=== PATIENT | female | born 1945 | race Caucasian/White ===

== ENCOUNTER 2017-02-16 21:06 | Inpatient (IN) | payer OTHER, MEDICAID, MEDICARE ==
--- NOTE | 2017-02-16 22:26 | ED Physician Chart ---
Chief Complaint/HPI - Patient Information Date Seen:: 02/16/17 Time Seen:: 21:14 Chief Complaint:: Confusion with intermittent agitation for 2 days. History of Present Illness:: Brought in by her significant other Mr. Jerald Galeana for the above reason. Pt has h/o bipolar disorder. Pt reportedly had increased dosage of Wellbutrin and addition of another medication Saphirs recently. Pt does not appear to be in distress. She has flight of ideas and does not follow questions or instructions. H & P are limited because pt is uncooperative. Pt denies any pain or discomfort. Allergies:: Allergies Allergy/AdvReac Type Severity Reaction Status Date / Time clozapine [From Clozaril] Allergy Verified 02/16/17 21:30 risperidone [From Risperdal] Allergy Verified 02/16/17 21:30 Vitals:: Vital Signs - 8 hr 02/16/17 21:15 Temp 98.1 F HR 74 RR 20 BP 115/84 O2 Sat % 97 Historian:: Patient Family MD/PCP:: Dr. العلي LMP:: Postmenopausal Review:: Nurse's Note Reviewed Review of Systems - Review of Systems General/Constitutional: Other (Pt does not cooperate for ROS) Past Medical History - Past Medical History Past Medical History: HTN, Thyroid disorder Family History: Other (Pt does not cooperate to provide info on FHx.) Social History: Non Smoker, No Alcohol, No Drug Use, , Other (lives with her significant others.) Employment:: Retired. Surgical History: other (pt does not cooperate to provide info on Surgical Hx.) Psychiatricy History: Bipolar Medication: Reviewed Family Medical History - Family Member Mother History Unknown: Yes Ethnicity: Unknown Living Status: Unknown Hx Family Cancer: (unknown) Hx Family Coronary Artery Disease: (unknown) Hx Family Congestive Heart Failure: (unknown) Hx Family Hypertension: (unknown) Hx Family Stroke: (unknown) Hx Family Diabetes: (unknown) Hx Family Seizures: (unknown) Hx Family Dementia: (unknown) Hx Family AIDS: (unknown) Hx Family HIV: No Hx Family COPD: (unknown) Hx Family Hepatitis: (unknown) Hx Family Psychiatric Problems: (unknown) Hx Family Tuberculosis: (unknown) Physical Exam - Physical Examination General/Constitutional: Awake, Well-developed, well-nourished, Alert, No distress, Non-toxic appearing, Ambulatory Other Gen/Cons comments:: Breathes comfortably, speaks clearly with flight of ideas, ambulates without assistance without difficulty. Head: Atraumatic Eyes: Lids, conjuctiva normal, PERRL, EOMI Skin: No ecchymosis, Well hydrated, No lymphadenopathy ENMT: External ears, nose nl, Nasal exam nl, Oropharynx nl Neck: Nontender, Full ROM w/o pain, No JVD, No nuchal rigidity, No mass, No stridor Respiratory: Nl effort/Exclusion, Clear to Auscultation, No Wheeze/Rhonchi/Rales Cardio Vascular: RRR, No murmur, gallop, rubs GI: No tenderness/rebounding/guarding, No organomegaly, No hernia, Normal BS's, Nondistended, No mass/bruits Other GI comments:: Abdomen is soft. : No CVA tenderness Extremities: No edema Other Neuro/Psych comments:: Alert, knows her name. Spontaneous movements noticed in all 4 extremities. Pt does not cooperate for full neurological exam. Labs/Radiology/EKG Results - Lab Results Results: Laboratory Tests 02/16/17 02/16/17 02/16/17 22:28 22:28 22:28 WBC 11.6 H D RBC 4.08 Hgb 12.6 Hct 37.0 MCV 90.7 MCH 30.8 MCHC Differential 33.9 RDW 12.5 Plt Count 217 D MPV 8.9 Band Neutrophils % 1 Neutrophils (Manual) 71 Lymphocytes 25 Monocytes 3 Platelet Estimate ADEQUATE PT 10.3 INR 0.99 PTT (Actin FS) 24.3 L Sodium 141 Potassium 3.2 L Chloride 108 H Carbon Dioxide 25.6 Anion Gap 10.6 BUN 25 Creatinine 1.4 H Est GFR ( Amer) 47.9 Est GFR (Non-Af Amer) 39.6 BUN/Creatinine Ratio 17.9 Glucose 159 H Calcium 9.8 Total Bilirubin 0.4 AST 15 ALT 11 Alkaline Phosphatase 91 Total Protein 6.7 Albumin 4.3 Globulin 2.4 Albumin/Globulin Ratio 1.8 TSH Urine Source Urine Color Urine Clarity Urine pH Ur Specific [place] Urine Protein Urine Glucose (UA) Urine Ketones Urine Blood Urine Nitrate Urine Bilirubin Urine Urobilinogen Ur Leukocyte Esterase Urine RBC Urine WBC Ur Epithelial Cells Urine Bacteria Hyaline Casts Urine Mucus Salicylates < 25.0 L Urine Opiates Screen Urine Methadone Screen Acetaminophen < 10.0 L Ur Barbiturates Screen Ur Tricyclics Screen Ur Phencyclidine Scrn Amphetamines Screen U Methamphetamines Scrn U Benzodiazepines Scrn U Cocaine Metab Screen U Cannabinoids Screen Ethyl Alcohol < 10 02/16/17 02/16/17 02/16/17 22:28 22:45 22:45 WBC RBC Hgb Hct MCV MCH MCHC Differential RDW Plt Count MPV Band Neutrophils % Neutrophils (Manual) Lymphocytes Monocytes Platelet Estimate PT INR PTT (Actin FS) Sodium Potassium Chloride Carbon Dioxide Anion Gap BUN Creatinine Est GFR ( Amer) Est GFR (Non-Af Amer) BUN/Creatinine Ratio Glucose Calcium Total Bilirubin AST ALT Alkaline Phosphatase Total Protein Albumin Globulin Albumin/Globulin Ratio TSH 0.36 Urine Source CATH Urine Color YELLOW Urine Clarity CLEAR Urine pH 6.0 Ur Specific [place] 1.015 Urine Protein TRACE Urine Glucose (UA) NEGATIVE Urine Ketones NEGATIVE Urine Blood SMALL H Urine Nitrate NEGATIVE Urine Bilirubin NEGATIVE Urine Urobilinogen 0.2 Ur Leukocyte Esterase NEGATIVE Urine RBC 0-2 Urine WBC 0-2 Ur Epithelial Cells MODERATE Urine Bacteria FEW Hyaline Casts 5-10 H Urine Mucus MODERATE Salicylates Urine Opiates Screen NEGATIVE Urine Methadone Screen NEGATIVE Acetaminophen Ur Barbiturates Screen NEGATIVE Ur Tricyclics Screen NEGATIVE Ur Phencyclidine Scrn NEGATIVE Amphetamines Screen NEGATIVE U Methamphetamines Scrn NEGATIVE U Benzodiazepines Scrn NEGATIVE U Cocaine Metab Screen NEGATIVE U Cannabinoids Screen NEGATIVE Ethyl Alcohol - Radiology Results Results: Head CT without contrast: No ICH, mass effect or edema. No evidence of acute cortical stroke. slightly increased size of the ventricles, compared to prior study, may be due to progressive central atrophy, cannot exclude mild developing hydrocephalus. Periventricular small vessel ischemic change. visualized sinuses and mastoid air cells are clear. Official report per Dr. Tyrese Araujo, radiologist. ED Septic Shock - . Is Septic Shock (SBP<90, OR Lactate>4 mmol\L) present?: No - <6hrs of presentation: Vital Signs: Vital Signs - 8 hr 02/16/17 21:15 Temp 98.1 F HR 74 RR 20 BP 115/84 O2 Sat % 97 Reassessment (Disposition) - Reassessment Reassessment:: 2345 Pt is agitated. Ativan one mg IM is to be given. 0140 Pt has recurrent agitation. Will repeat Ativan one mg IM. 0230 Pt continues to be agitated. Haldol 5 mg IM to be given. Head CT report just became available earlier. Case was discussed with Dr. Head with pertinent H & P, lab and CT findings reviewed. Pt is to be admitted to Telemetry [facility] under his care. Reassessment Condition:: Unchanged, Improved - Diagnosis Diagnosis:: Mental confusion with intermittent agitation. Consider medication effect vs other etiologies. H/O bipolar disorder Mild hyperglycemia. Stable. Mild hypokalemia, stable - Patient Disposition Admitted to:: Telemetry Admitting Medical Physician:: Paco Head Time:: 02:50 Condition at Disposition:: Stable, Improved
[2017-02-16 22:44] LABS: HEMOGLOBIN 12.6 gm/dL (11.7-16.1); MEAN CELL VOLUME 90.7 fl (81-100); MEAN CORPUSCULAR HEMOGLOBIN 30.8 pg (27.0-31.0); MEAN CORPUSCULAR HGB CONC 33.9 pg (28.0-36.0); MEAN PLATELET VOLUME 8.9 fl; RED BLOOD COUNT 4.08 Mil/cmm (3.80-5.20); RED CELL DISTRIBUTION WIDTH 12.5 % (11.5-20.0)
[2017-02-16 22:46] LABS: PLATELET COUNT 217 Th/cmm (150-400); WHITE BLOOD COUNT 11.6 Th/cmm (4.8-10.8)
[2017-02-16 22:57] LABS: ACETAMINOPHEN < 10.0 ug/mL (10.0-30.0); ALB/GLOB RATIO 1.8 (1.0-1.8); ALKALINE PHOSPHATASE 91 U/L (34-104); ANION GAP 10.6 (7.0-16.0); BILIRUBIN,TOTAL 0.4 mg/dL (0.3-1.0); BUN - UREA NITROGEN 25 mg/dL (7-25); BUN/CREATININE RATIO 17.9; CALCIUM SERUM 9.8 mg/dL (8.6-10.3); CARBON DIOXIDE 25.6 mEq/L (21.0-31.0); CHLORIDE 108 mEq/L (98-107); CREATININE - SERUM 1.4 mg/dL (0.6-1.2); GLUCOSE 159 mg/dL (70-105); INR 0.99 (0.5-1.4); POTASSIUM SERUM 3.2 mEq/L (3.5-5.1); PROTHROMBIN TIME (TEST) 10.3 SECONDS (9.5-11.5); SGOT 15 U/L (13-39); SGPT/ALT 11 U/L (7-52); SODIUM SERUM 141 mEq/L (136-145)
[2017-02-16 23:01] LABS: URINE BILIRUBIN NEGATIVE (NEGATIVE); URINE BLOOD SMALL (NEGATIVE); URINE COLOR YELLOW; URINE GLUCOSE (UA) NEGATIVE (NEGATIVE); URINE KETONE NEGATIVE (NEGATIVE); URINE PROTEIN TRACE mg/dL (NEGATIVE); URINE UROBILINOGEN 0.2 E.U./dL (0.2 - 1.0)
[2017-02-16 23:02] LABS: URINE BACTERIA FEW /hpf (NONE SEEN); URINE EPITHELIAL CELLS MODERATE /lpf (FEW); URINE RBC 0-2 /hpf (0-5); URINE WBC 0-2 /hpf (0-5)
[2017-02-16 23:06] LABS: BAND NEUTROPHILE 1 % (0-10); NEUTROPHILS 71 % (40-80); PLATELET ESTIMATE ADEQUATE (NORMAL); TOTAL CELLS COUNTED 100
[2017-02-16 23:08] LABS: AMPHETAMINE URINE NEGATIVE (NEGATIVE); BARBITURATES URINE NEGATIVE (NEGATIVE); METHADONE URINE NEGATIVE (NEGATIVE)
[2017-02-17] MEDS ORDERED: Potassium Chloride 20 mEq ER Tab PO ONE ×2 (02:28→02:36)
[2017-02-17] MEDS ORDERED: Haloperidol Lactate 5 mg/mL 1mL Vial IM STA (02:30)
[2017-02-17] MEDS ORDERED: Haloperidol Lactate 5 mg/mL 1mL Vial ONE (02:31)
[2017-02-17] MEDS ORDERED: Acetaminophen 500 MG TAB PO PRN (04:06)
[2017-02-17] MEDS: Sodium Chloride 0.45% 1,000 ML IV SCH ×2 (04:24→20:44)
--- NOTE | 2017-02-17 07:27 | History & Physical ---
ADMIT DATE: 02/17/2017 The patient was admitted to the Emergency Room. CHIEF COMPLAINT: Acute confusion, disorientation, altered level of consciousness. HISTORY OF PRESENT ILLNESS: This 71-year-old female was admitted ____ Emergency Room. She was brought by her friend for ____ episode of acute confusion, disorientation, hallucination. She was evaluated in the Emergency Room. Apparently, she does have a history of ____ psychosis and bipolar. She has been on some psych medication. She also has history of high blood pressure for which she takes Norvasc and her other medications include levothyroxine 0.025 daily, aspirin 81 mg daily, Norvasc 5 mg daily, Namenda 10 mg, donepezil hydrochloride 10 mg, asenapine maleate 5 mg at bedtime, bupropion ____ mg. There is no history available from the patient. PAST MEDICAL HISTORY, SOCIAL HISTORY, FAMILY HISTORY, and REVIEW OF SYSTEMS: Not available. Nothing is available from the patient. The patient is totally confused, disoriented, not cooperative. PHYSICAL EXAMINATION: VITAL SIGNS: Heart rate 82, O2 saturation 98%, respirations 16, blood pressure 94/61. SKIN: Normal. HEAD: Normocephalic. EYES: Conjunctivae were pink. There is no icterus in the eyes. Pupils are reacting to light. NECK: There was no increased jugular venous distention. No thyromegaly, no lymphadenopathy. Carotids equal both sides. CHEST: Bilaterally symmetrical and moved well with respiration. Respiratory movements equal on both sides. Trachea is central. There is note to percussion. Breath sounds, few basilar rales. CARDIOVASCULAR SYSTEM: PMI not well localized and no positional thrill. No parasternal heave, S1 normal, S2 physiologic. There was no S3, no rub. ABDOMEN: Soft, no tenderness, no rigidity, no guarding, no organomegaly. Bowel sounds normal. CENTRAL NERVOUS SYSTEM: The patient is confused, disoriented; reflexes appear unremarkable, plantars or flexors.. EXTREMITIES: No calf tenderness. Radha pulses diminished. LABORATORY DATA: Her CT has done which showed no intracranial hemorrhage, mass effect or edema, no evidence of acute cortical stroke, slightly increased size of the ventricles, cannot dispute mild developing hydrocephalus, periventricular small-vessel ischemic changes. Urinalysis was unremarkable. WBC was 11.6, hemoglobin was 12.6, hematocrit was 37.0, platelet count was 217. Drug screening report was negative. INR was 0.99. PTT was 24.3. Sodium was 141, potassium 3.2, chloride 108, CO2 of 25.6, BUN 25, creatinine 1.4, glucose 159, liver function test unremarkable. IMPRESSION: Altered level of consciousness, acute episode of confusion, disorientation, Hallucinations. The patient has a history of being bipolar, dementia, psychosis, hypertension, hypothyroidism. Possibility of hydrocephalus. PLANS: As per orders. JOB# [id number]
[2017-02-17 07:33] LABS: % BASOPHILS 0.6 % (0.0-2.0); % EOSINOPHILS 2.5 % (0.0-5.0); % LYMPHOCYTES 27.8 % (20.0-50.0); % MONOCYTES 10.2 % (2.0-10.0); % NEUTROPHILS 58.9 % (40.0-80.0); HEMATOCRIT 34.8 % (35.0-45.0); HEMOGLOBIN 11.8 gm/dL (11.7-16.1); MEAN CELL VOLUME 91.8 fl (81-100); MEAN CORPUSCULAR HEMOGLOBIN 31.2 pg (27.0-31.0); MEAN PLATELET VOLUME 7.9 fl; NEUTROPHILE ABSOLUTE 4.8 Th/cmm (1.8-8.0); PLATELET COUNT 266 Th/cmm (150-400); RED BLOOD COUNT 3.79 Mil/cmm (3.80-5.20); RED CELL DISTRIBUTION WIDTH 12.6 % (11.5-20.0); WHITE BLOOD COUNT 8.1 Th/cmm (4.8-10.8)
[2017-02-17 07:49] LABS: ALB/GLOB RATIO 1.6 (1.0-1.8); ALKALINE PHOSPHATASE 82 U/L (34-104); ANION GAP 6.3 (7.0-16.0); BILIRUBIN,TOTAL 0.4 mg/dL (0.3-1.0); BUN - UREA NITROGEN 19 mg/dL (7-25); BUN/CREATININE RATIO 21.1; CALCIUM SERUM 9.6 mg/dL (8.6-10.3); CARBON DIOXIDE 26.3 mEq/L (21.0-31.0); CHLORIDE 110 mEq/L (98-107); CHOLESTEROL 186 mg/dL (<200); CREATININE - SERUM 0.9 mg/dL (0.6-1.2); GLUCOSE 101 mg/dL (70-105); POTASSIUM SERUM 3.6 mEq/L (3.5-5.1); SGOT 22 U/L (13-39); SGPT/ALT 11 U/L (7-52); SODIUM SERUM 139 mEq/L (136-145); TRIGLYCERIDES 83 mg/dL (<150)
--- NOTE | 2017-02-17 09:03 | Diagnostic Imaging Report ---
Portable chest x-ray History: Shortness of breath Allowing for portable technique the heart size is normal. No focal pulmonary parenchymal processes. No hilar or mediastinal abnormalities. Impression: No acute abnormalities.
[2017-02-17 09:07] LABS: ABG SOURCE Arterial; ALLEN TEST YES; BE(B) 2.8 mEq/L (-3.0-3.0); CRITICAL VALUES REPORTED BY SH; FIO2 21; pH 7.37 (7.35-7.45)
--- NOTE | 2017-02-17 09:19 | Diagnostic Imaging Report ---
CT scan of the brain without intravenous contrast HISTORY: Stroke, CVA Total DLP equals 589 CTDI equals 33.0 Axial sections were obtained from the base of the skull to the vertex. There is prominence/enlargement of the ventricular system size. Associated enlargement of cerebral sulci and subarachnoid cisterns. Findings are consistent with changes of generalized cerebral atrophy. No acute parenchymal abnormalities. No acute cerebral hemorrhage. Hypodensity is seen within the supratentorial white matter regions without mass effect. The findings may be associated with chronic small vessel ischemic disease. No extra-axial masses or abnormal fluid collections. IMPRESSION: 1. No acute abnormalities 2. Cerebral atrophy 3. Supratentorial white matter changes that may reflect chronic small vessel ischemic disease
[2017-02-17] MEDS ORDERED: VTE Chemical Prophylaxis Screen/Admission MC PRN (16:00)
--- NOTE | 2017-02-18 02:49 | Consultation ---
DATE OF CONSULTATION: 02/17/2017 HISTORY OF PRESENT ILLNESS: The patient is 71-year-old, brought in because of the patient's confusion and agitation. The patient with underlying diagnosis of bipolar, on multiple medications. Noted to have episode where the patient will ramble at times, other times not interact very much. Seems to be confused. PAST MEDICAL HISTORY: 1.Bipolar. 2.The patient has a history of hypertension and thyroid disorder. 3.The patient has questionable dementia. ALLERGIES: CLOZARIL AND RISPERIDONE. MEDICATIONS: As per reconciliation. Here, the patient is on lorazepam and Zofran. The patient has been on Haldol. REVIEW OF SYSTEMS: No headaches. No seizures. Moving all extremities. PHYSICAL EXAMINATION: VITAL SIGNS: Temperature 97.8, blood pressure 114/57 and pulse is 68. NECK: Supple. No bruits. HEART: Sounds S1, S2. LUNGS: Clear. NEUROLOGIC: The patient is awake, alert. She has her eyes closed, but she will talk. She will say, ____ "why can't I wake up," but she is completely coherent. She gives me her name. Then, she opened her eyes and interacted with me, answered some questions, but then again closed her eyes, says, "I do not want to talk anymore." Pupils react to light. The patient will lift both arms up, will lift both legs up. Subsequently, few minutes later, she will refuse to do anything. INVESTIGATIONS: CT scan of the head is negative. LABORATORY DATA: WBC 8.1, hemoglobin 11.8, CO2 50.0, ____ 72.0. IMPRESSION: 1.Encephalopathy. 2.Psychosis. 3.History of hypertension. 4.Bipolar. The patient may live with what appears to be psychotic episode. Does not seem to have any definite metabolic ____. CT scan negative, no other focal deficits. JOB# [id number]
--- NOTE | 2017-02-18 07:08 | Consultation ---
DATE OF CONSULTATION: 02/18/2017 AGE: 71. SEX: Female. PHYSICIAN: Dr. Young. CHIEF COMPLAINT: Confusion. HISTORY OF PRESENT ILLNESS: The patient is a 71-year-old female who is well known to me from previous treatment of schizoaffective disorder. The patient has been confused and has been anxious. The patient also has been having periods of irritability and agitation. She also has been restless. The patient also has been in need for redirections because of her confusion. She is unable to carry on any coherent conversation. PAST PSYCHIATRIC HISTORY: The patient has history of schizoaffective disorder with multiple psychiatric hospitalizations. PAST MEDICAL HISTORY: The patient has been admitted to the hospital because of confusion and disorientation and also altered level of conscious. She also has history of hypertension and hypothyroidism. SOCIAL HISTORY: The patient lives with her boyfriend. No known alcohol or drug use. MENTAL STATUS EXAM: The patient appears slightly older than stated age. Confused. Depressed. Unable to carry on any coherent conversation. She is actively responding. Unable to assess the rest of the mental status exam. ASSESSMENT: PRIMARY DIAGNOSIS: Schizoaffective disorder, bipolar type, with psychosis. TREATMENT PLAN: Continue to monitor her behavior. Also, continue to work on evaluating for possible use of psychotropic medications. We will follow up. Thanks to Dr. Head and we will follow up with you. JOB# [id number]
--- NOTE | 2017-02-18 13:58 | Cardiology ---
02/17/[address] Iván العلي. M-MODE ECHOCARDIOGRAM: Mitral valve, anterior leaflet of mitral valve shows normal excursion, EF velocity. Posterior leaflet of mitral valve shows normal excursion. Left ventricular posterior wall shows increased thickness, normal excursion. Interventricular septum shows increased thickness, normal excursion, hypertrophy of the left ventricle, ejection fraction 71%. Left atrium normal. Aortic root shows normal dimension, normal excursion of aortic leaflets. CONCLUSION: Hypertrophy of the left ventricle, ejection fraction 71%. 2D ECHO: Long axis view showed normal sized left ventricle with hypertrophy of the left ventricle. Left atrium normal. Aortic root shows normal dimension, normal excursion of aortic leaflets. Short axis view of mitral valve normal. Short axis view of aortic valve normal. Apical four chamber view showed normal sized left ventricle with hypertrophy of the left ventricle. Left atrium normal. Right ventricular cavity, right atrium normal, no pericardial effusion. CONCLUSION: Hypertrophy of the left ventricle, ejection fraction 71%. Doppler study shows trace mitral regurgitation, mild tricuspid regurgitation, mild pulmonary regurgitation. Right ventricular systolic pressure 30 mmHg. [facility]# [id number]
[2017-02-18] MEDS: Sodium Chloride 0.45% 1,000 ML IV SCH (20:48)
--- NOTE | 2017-02-19 00:42 | Admit Criteria Form ---
Admit Criteria Forms - Admit Criteria Diagnosis: PSYCHIATRIC DISORDERS (Place 'X' for any and all applicable criteria): Ongoing inpatient care may be needed for 1 or more of the following(1)(2)(3)(4)( 6)(7)(8): [ ]I. Danger to self or others not manageable at lower level of care. [ ]II. Grave disability (eg, inability to perform self care necessary at lower level of care) [ ]III. Agitation or inappropriate behavior interfering with care for primary condition (eg, attempting to discontinue lines or drains prematurely, unable to cooperate with respiratory care) [X ]IV. Severe disability or disorder indicated by ALL of the following: [X ]a) Severe behavioral health disorder-related symptoms or condition indicated by 1 or more of the following: [ ]i) Severe problem with cognition, memory, judgment, or impulse control [X ]ii) Severe clinical manifestations (eg, hallucinations , delusions, other acute psychotic symptoms, maureen, extreme agitation or anxiety) [X ]b) Patient management at lower level of care is not feasible until acute intervention or modification is initiated. Extended stay beyond goal length of stay for the primary condition may be needed until ALLof the following are present(1)(2)(3)(4)(7)48)(23): [ ]a) Danger to self or others is absent or manageable at lower level of care [ ]b) Behavior crisis management, including physical or chemical restraints, is required and is not available at a lower level of care. [ ]c) Behavioral symptoms (e.g., agitation, somnolence, inappropriate behavior) are present, and are not manageable at a lower level of care. [ ]d) Patient cannot understand follow-up treatment and crisis plan. [ ]e) Provider and supports are sufficiently available at lower level of care. [ ]f) Patient can participate (e.g., verify absence of plan for harm) and is in needed of monitoring. The original [facility] content created by [facility] has been revised. The portions of the content which have been revised are identified through the use of italic text or in bold, and [facility] has neither reviewed nor approved the modified material. All other unmodified content is copyright [facility]. Please see references footnoted in the original [facility] edition 2017 Admit Criteria Met?: Yes
[2017-02-19] MEDS: Sodium Chloride 0.45% 1,000 ML IV SCH (14:34)
--- NOTE | 2017-02-20 20:46 | Discharge Summary ---
DATE OF DISCHARGE: 02/20/[address] العلي. HISTORY OF PRESENT ILLNESS: This is a 71-year-old female patient who was brought in to the Emergency Room by a friend due to hallucination, confusion, and disorientation. In the Emergency Room, the patient was found to have sinus bradycardia and the patient is admitted. No history of PND or orthopnea. PAST MEDICAL HISTORY: Psychosis, schizophrenia, bipolar. FAMILY HISTORY: Unremarkable. SOCIAL HISTORY: No history of smoking or alcohol abuse. ALLERGIES: No known allergies. PHYSICAL EXAMINATION: VITAL SIGNS: Blood pressure 130/80, pulse 50, and respirations 20. HEENT: Head is normocephalic. No lumps or bumps. EYES: Pupils are equal and reactive to light. Fundi showing nicking, sclerae white, conjunctivae pink. NECK: Carotid 2+, normal upstroke. JVD flat. Thyroid not palpable. Lymph nodes not palpable. CHEST: Shows increased AP diameter. No kyphosis or scoliosis. LUNGS: Bilateral bronchovesicular breath sounds. HEART: PMI fifth intercostal space with lateral to midclavicular line. S1 and S2. No S3 or S4. Systolic murmur, grade 2/6, lower left sternal border without radiation. ABDOMEN: Soft. Liver and spleen not palpable. No organomegaly. Bowel sounds are active. NEUROLOGIC: Unremarkable. EXTREMITIES: Peripheral pulses 2+. No pedal edema. CLINICAL IMPRESSION: Sinus bradycardia, asymptomatic, psychosis, schizophrenia, bipolar, hypertension, and hypothyroidism. PLAN: Admit the patient. We will continue to monitor the patient and have a psychiatric evaluation. The patient at this time was seen by a psychiatrist and the patient was treated medically and the patient was discharged to be followed by outpatient psychiatry. JOB# [id number]
== END 2017-02-20 18:15 | disposition home or self-care (01) | DRG 72 ==
LOC: ER 21:06 → TELE 02-17 02:50 → MSI 02-19 16:52
PROVIDERS: ADMIT Internal Medicine Cardiovascular Disease; ATTEND Internal Medicine Cardiovascular Disease
DX: G93.40 Encephalopathy, unspecified (principal); F25.0 Schizoaffective disorder, bipolar type; F03.90 Unspecified dementia, unspecified severity, without behavioral disturbance, psychotic disturbance, mood disturbance, and anxiety; R00.1 Bradycardia, unspecified; F32.9 Major depressive disorder, single episode, unspecified; F29 Unspecified psychosis not due to a substance or known physiological condition; I10 Essential (primary) hypertension; E03.9 Hypothyroidism, unspecified; E87.6 Hypokalemia; R73.9 Hyperglycemia, unspecified; Z86.73 Personal history of transient ischemic attack (TIA), and cerebral infarction without residual deficits; Z88.8 Allergy status to other drugs, medicaments and biological substances; Z86.39 Personal history of other endocrine, nutritional and metabolic disease
CPT/HCPCS: 36415-UA; 36600-90; 70450-TC; 71010-TC; 80053-TC; 80061-TC; 80307; 80320-TC; 80329-TC; 81001-TC; 82803-TC; 84436-TC; 84443-TC; 84479-TC; 85007-TC; 85025-TC; 85027-TC; 85610-TC; 93005; J1630; J2060; Z7610

== ENCOUNTER 2019-03-18 10:55 | Inpatient (IN) | payer MEDICARE, MEDICAID ==
[2019-03-18 12:55] VITALS: BP 149/79
[2019-03-18] MEDS ORDERED: Maalox 30 mL Cup PO PRN (15:09)
--- NOTE | 2019-03-18 22:33 | Psychiatric Evaluation ---
DATE OF SERVICE: 03/18/2019 JUSTIFICATION FOR HOSPITALIZATION: History of bipolar, brought in by , taking her clothes off in the streets, sleeping in the bathtub. HISTORY OF PRESENT ILLNESS: A 74-year-old female, confused, history of bipolar, possible schizoaffective disorder, brought in by , because the patient was having trouble ambulating, hospitalized and discharged a few days prior, but not stable, wandering in the street without clothes, sleeping in her bathtub. On [id number], the patient is a very poor historian, has no idea what is going on or where she is or why she is here. PAST PSYCHIATRIC HISTORY: As noted. Hospitalizations in the past. SOCIAL HISTORY: Apparently, the patient is living at home with her , has an address in [place]. No tobacco, alcohol or drug use. PAST SURGICAL HISTORY: Noted. MEDICAL HISTORY: Noted. MENTAL STATUS EXAMINATION: Stated age. Fair eye contact. Speech is rambling, confused, disoriented. No SI, no HI. No overt psychotic symptoms, but it is difficult to fully assess. The patient brought in on a hold. Poor insight, poor judgment, poor impulse control. PROVISIONAL DIAGNOSES: Bipolar, rule out schizoaffective. MEDICAL: Please see full H and P. ESTIMATED LENGTH OF STAY: 7-10 days. ASSESSMENT: The patient requiring hospitalization for the above noted reasons, unstable, bizarre behaviors, decompensating. TREATMENT PLAN: Includes group as well as milieu therapy. CONDITIONS FOR DISCHARGE: Improved mood, improved affect, better control of her psychotic symptoms. [facility]# [id number]
[2019-03-19 07:26] LABS: CHOLESTEROL 187 mg/dL (<200); HDL -HIGH DENSITY LIPOPROTEIN 48 mg/dL (23-92); TRIGLYCERIDES 141 mg/dL (<150)
[2019-03-19] MEDS: Multivitamin Tab PO SCH (08:54)
--- NOTE | 2019-03-19 23:05 | Progress Notes ---
DATE: 03/19/2019 A 74-year-old female, confused, bizarre, not making much sense, disoriented, hallucinating, restless, talkative, unable to really engage with her at all. Very impulsive. Currently in a Cesilia chair. ASSESSMENT: The patient with severe thought disorder. Medications were noted. PLAN: We will continue to monitor. She is on Depakote, Cogentin, Namenda, trazodone, Latuda. We will restart medications. She was recently taken off Klonopin. JOB# [id number]
--- NOTE | 2019-03-20 01:02 | History & Physical ---
ADMIT DATE: 03/19/2019 REASON FOR ADMISSION: Psychiatric disorder. HISTORY OF PRESENT ILLNESS: This is a 74-year-old female with underlying history of hypertension, seizure disorder, mental disorder, who was admitted to Geropsych Unit for underlying psychiatric illness by Dr. Perez, who requested medical H and P on this patient. The patient denies any medical concerns. PAST MEDICAL HISTORY: Hypertension, seizure disorder. PAST SURGICAL HISTORY: None reported. FAMILY HISTORY: Noncontributory. SOCIAL HISTORY: Lives at nursing facility. Negative for alcohol, tobacco, or street drug use. CURRENT MEDICATIONS: Per medication reconciliation list. ALLERGIES: ALLERGIC TO CLOZAPINE AND RISPERIDONE. REVIEW OF SYSTEMS: No fever, no chills, no cough, no chest pain or trouble breathing. No nausea, no vomiting, no abdominal pain reported. PHYSICAL EXAMINATION: VITAL SIGNS: Temperature 98.0, pulse 64, respirations 18, blood pressure 115/62, oxygen 90% on room air. HEENT: Unremarkable. HEART: S1, S2 normal. LUNGS: Clear to auscultation. ABDOMEN: Soft, nontender. NEUROLOGIC: Awake, confused. Moves all extremities. Grossly nonfocal exam. EXTREMITIES: No edema noted. AVAILABLE LABORATORY DATA: Reviewed. ASSESSMENT: 1. Hypertension. 2. Seizure disorder. 3. Mental disorder. PLAN: The patient will be continued on amlodipine, Depakote. Continue the psychotropic medications. Aspiration precautions, fall precautions and skin care at the [facility]. Discussed the patient's condition and plan of care discussed with the nursing staff. Thank you, Dr. Perez and Dr. Young for allowing me to participate in the care of this patient. JOB# [id number]
[2019-03-20 07:06] LABS: A1C 5.5 % (4.8-5.6)
[2019-03-20] MEDS: Multivitamin Tab PO SCH (09:04)
--- NOTE | 2019-03-20 18:04 | Progress Notes ---
DATE: 03/20/2019 SUBJECTIVE: The patient poorly oriented, does not really know what is going on, just rambling nonsensically, hard to redirect or restless, talkative, just keeps talking on and on about things, still making any sense. The patient is well known to this clinician, long history of mental illness. Currently on Namenda, trazodone, Depakote, seems to have slept fairly well over the nighttime, highly impulsive behaviors, unpredictable. PLAN: We will continue to monitor and check a Depakote level in a few days. JOB# [id number]
[2019-03-21] MEDS: Multivitamin Tab PO SCH (09:00)
--- NOTE | 2019-03-21 19:55 | Progress Notes ---
DATE: 03/21/2019 SUBJECTIVE: The patient in the hospital. Patient is ongoing forgetfulness, rambling preoccupied and confusional state. Noted to be impulsive and rambling. AO to name. The patient knows that she is in the hospital. Otherwise, not making any sense, talking very quickly essentially word salad, yelling at times. Medications were noted. Currently on trazodone, Namenda, and Depakote. We will plan to check a Depakote level in the next 2-3 days. The patient remains acute, unable to be cared for at a lower level of care. JOB# [id number]
[2019-03-22] MEDS: Multivitamin Tab PO SCH (09:15)
--- NOTE | 2019-03-22 15:22 | Progress Notes ---
DATE: 03/22/2019 SUBJECTIVE: The patient remains highly confused, disoriented, basically knows her name, very impulsive, unpredictable, rambling, talking nonsense, bizarre ideations, disorganized, significant other believes that the Depakote may be worsening her confusional state, so I will lower it down. She usually takes Latuda not available in the hospital. She may benefit therefore from dosing of Geodon as a replacement. ASSESSMENT: The patient remains symptomatic, still bizarre, psychotic appearing. We will initiate b.i.d. dosing of Latuda. We will continue to monitor. JOB# [id number]
--- NOTE | 2019-03-22 21:25 | General Progress Note ---
Subjective - Review of Systems Service Date: 03/22/19 Subjective: Patient seen and examined doing fine denied any complaints Objective - Results Recent Labs: Laboratory Last Values POC Glucose 106 MG/DL (70 - 105) H 03/18/19 20:04 Triglycerides 141 mg/dL (<150) 03/19/19 07:05 Cholesterol 187 mg/dL (<200) 03/19/19 07:05 LDL Cholesterol Direct 114 mg/dL (75-193) 03/19/19 07:05 HDL Cholesterol 48 mg/dL (23-92) 03/19/19 07:05 - Physical Exam Vitals and I&O: Vital Signs Temp 97.3 F 03/22/19 19:45 Pulse 69 03/22/19 19:45 Resp 18 03/22/19 19:45 BP 124/93 03/22/19 19:45 Pulse Ox 97 03/22/19 19:45 Intake & Output 03/22/19 03/22/19 03/23/19 06:59 18:59 06:59 Intake Total 240 Balance 240 Intake: Oral 240 Other: # Voids 2 Active Medications: Current Medications Acetaminophen (Tylenol) 650 mg PO Q4HR PRN PRN Reason: Mild Pain / Temp above 100 Stop: 05/17/19 15:08 Al Hydrox/Mg Hydrox/Simethicone (Maalox) 30 ml PO Q4HR PRN PRN Reason: GI DISTRESS Stop: 05/17/19 15:08 Amlodipine Besylate (Norvasc) 5 mg PO DAILY COUNTS INCLUDE 234 BEDS AT THE [facility] Stop: 05/18/19 08:59 Last Admin: 03/22/19 09:15 Dose: Not Given Divalproex Sodium (Depakote Dr) 500 mg PO BID JON; Protocol Stop: 05/21/19 16:59 Last Admin: 03/22/19 19:07 Dose: Not Given Lorazepam (Ativan) 0.5 mg PO Q4HR PRN; Protocol PRN Reason: Anxiety Stop: 04/17/19 15:08 Last Admin: 03/21/19 09:00 Dose: 0.5 mg Memantine (Namenda) 5 mg PO DAILY COUNTS INCLUDE 234 BEDS AT THE [facility] Stop: 05/18/19 16:59 Last Admin: 03/22/19 09:15 Dose: 5 mg Multivitamins/Vitamin C (Theragran) 1 tab PO DAILY JON Stop: 05/18/19 08:59 Last Admin: 03/22/19 09:15 Dose: 1 tab Trazodone HCl (Desyrel) 50 mg PO HS JON; Protocol Stop: 05/18/19 20:59 Last Admin: 03/21/19 21:36 Dose: 50 mg Ziprasidone (Geodon) 20 mg PO BID JON; Protocol Stop: 05/21/19 16:59 Cardiovascular: Regular rate Lungs: Clear to auscultation - Procedures Procedures: Procedures Procedure Code Date DRAINAGE OF SPINAL CANAL, PERCUTANEOUS APPROACH, DIAGNOSTIC [id number] 10/14/15 GROUP PSYCHOTHERAPY 67029 10/20/15 GROUP PSYCHOTHERAPY GZHZZZZ 10/20/15 SPINAL FLUID TAP DIAGNOSTIC 46620 10/14/15 Assessment/Plan - Assessment Assessment: HTN Seizure disorder Weakness Psych disorder - Plan Plan: PT OT Continue current meds Psych follow up Fall precaution Asp precaution
[2019-03-23] MEDS: Multivitamin Tab PO SCH (08:34)
--- NOTE | 2019-03-23 11:23 | Progress Notes ---
DATE: 03/23/[address] Young. Case was discussed with staff of the patient, reviewed records. This is a 74-year-old female with a history of bipolar disorder, brought by her . She has been taking clothes off on the streets, sleeping in the bathtub. She is confused and she is not able to sleep, unable to ambulate. She was hospitalized and discharged 2 days prior, but not stable, wandering in the streets without clothes, sleeping in her bathtub. The patient was unable to sleep well last night, continues to be confused, disoriented, can say her name only, very impulsive, unpredictable, rambling, talking nonsense, acting bizarre, disorganized. Depakote was given, but lowered because of possibility of making her more confused. She used to be on the Latuda, was not available on the formulary. The patient continues to be unpredictable, impulsive, needing redirection, not ready to go to a lesser level of care. Her current dose of Depakote is 500 mg twice a day, needs to be on 750 twice a day, Namenda 5 mg daily and trazodone 50 mg at bedtime. No Geodon was initiated. We will continue to work with the patient on group therapy, milieu therapy, and adjust the medications as needed. JOB# [id number] MTDD
[2019-03-24] MEDS: Multivitamin Tab PO SCH (08:49)
--- NOTE | 2019-03-24 16:01 | Progress Notes ---
DATE: 03/24/2019 Case was discussed with staff of the patient, reviewed records. The patient continues to be unpredictable, impulsive, needing redirection. Continues to have poor insight, easily agitated. She apparently has been wandering the streets, sleeping in the bathtub, confused, disoriented, impulsive, unpredictable. Geodon was initiated with no side effects. No sedation, no nausea and no extrapyramidal symptoms. We will continue outpatient group therapy, milieu therapy, adjust medication as needed. As far as lab work in this patient, the only thing I have his lipid profile, which showed within normal range. She has high blood sugar at 106. JOB# [id number]
[2019-03-25] MEDS: Multivitamin Tab PO SCH (09:30)
--- NOTE | 2019-03-25 13:07 | Progress Notes ---
DATE: 03/25/2019 Case was discussed with staff of the patient, reviewed records. The patient has been delusional. Today, she believes there is a man in the room and actually saw another lady. Continues to be confused, unpredictable, impulsive, needing redirection. Continues to have poor insight, unable to make safe plan for self-care. She is sleeping better, eating better, compliant with the medication with no side effects. No sedation, no nausea, no extrapyramidal symptoms. We will continue outpatient group therapy, milieu therapy, and adjust medications as needed. JOB# [id number]
[2019-03-26] MEDS: Multivitamin Tab PO SCH (09:15)
--- NOTE | 2019-03-26 20:08 | Progress Notes ---
DATE: 03/26/2019 Case was discussed with staff of the patient, reviewed records. The patient continues to be confused. She believes she is at work. Continues to be unable to make safe plan for self-care. Continues to be unpredictable, impulsive, needing redirection, very poor insight. She is demented, confused. She is on Namenda 5 mg daily. I will be increasing the dose to twice a day and also apparently she lives with her , but we will try to send her to a nursing facility until her make arrangement for him to be able to take care of her at home. The patient is on Depakote 500 mg twice a day because of agitation and trazodone 50 mg at bedtime. No side effects with the medication, no sedation, no nausea. The patient have a high blood sugar at 106, triglycerides within normal range and cholesterol within normal range. We will continue to work with the patient in group therapy, milieu therapy, and adjust the medication as needed. [facility]# [id number]
[2019-03-27] MEDS: Multivitamin Tab PO SCH (08:22)
--- NOTE | 2019-03-27 17:59 | Progress Notes ---
DATE: 03/27/2019 Case was discussed with staff of the patient, reviewed records. The patient continues to be confused, continues to be unpredictable, impulsive, continues to need redirection. We are referring her to a nursing facility because it does not seem like her can take care of her. No side effects to the medication, no sedation, no nausea, no extrapyramidal symptoms. We will continue to work with the patient in group therapy, milieu therapy, adjust the medication as needed. JOB# [id number]
[2019-03-28] MEDS: Multivitamin Tab PO SCH (08:41)
--- NOTE | 2019-03-28 22:09 | General Progress Note ---
Subjective - Review of Systems Service Date: 03/28/19 Subjective: Patient seen and examined doing fine denied any complaints Objective - Results Recent Labs: Laboratory Last Values POC Glucose 106 MG/DL (70 - 105) H 03/18/19 20:04 Triglycerides 141 mg/dL (<150) 03/19/19 07:05 Cholesterol 187 mg/dL (<200) 03/19/19 07:05 LDL Cholesterol Direct 114 mg/dL (75-193) 03/19/19 07:05 HDL Cholesterol 48 mg/dL (23-92) 03/19/19 07:05 - Physical Exam Vitals and I&O: Vital Signs Temp 0 F 03/28/19 20:10 Pulse 109 03/28/19 14:00 Resp 20 03/28/19 14:00 BP 131/93 03/28/19 14:00 Pulse Ox 98 03/28/19 14:00 Intake & Output 03/28/19 03/28/19 03/29/19 06:59 18:59 06:59 Intake Total 1200 120 Balance 1200 120 Intake: Oral 1200 120 Other: # Voids 3 # Bowel Movements 0 Active Medications: Current Medications Acetaminophen (Tylenol) 650 mg PO Q4HR PRN PRN Reason: Mild Pain / Temp above 100 Stop: 05/17/19 15:08 Al Hydrox/Mg Hydrox/Simethicone (Maalox) 30 ml PO Q4HR PRN PRN Reason: GI DISTRESS Stop: 05/17/19 15:08 Amlodipine Besylate (Norvasc) 5 mg PO DAILY [facility] Stop: 05/18/19 08:59 Last Admin: 03/28/19 08:41 Dose: 5 mg Divalproex Sodium (Depakote Dr) 500 mg PO BID [facility]; Protocol Stop: 05/21/19 16:59 Last Admin: 03/28/19 16:30 Dose: 500 mg Lorazepam (Ativan) 0.5 mg PO Q4HR PRN; Protocol PRN Reason: Anxiety Stop: 04/17/19 15:08 Last Admin: 03/23/19 23:42 Dose: 0.5 mg Memantine (Namenda) 5 mg PO BID [facility] Stop: 05/25/19 16:59 Last Admin: 03/28/19 16:30 Dose: 5 mg Multivitamins/Vitamin C (Theragran) 1 tab PO DAILY [facility] Stop: 05/18/19 08:59 Last Admin: 03/28/19 08:41 Dose: 1 tab Trazodone HCl (Desyrel) 50 mg PO HS JON; Protocol Stop: 05/18/19 20:59 Last Admin: 03/28/19 20:41 Dose: 50 mg Ziprasidone (Geodon) 20 mg PO BID JON; Protocol Stop: 05/21/19 16:59 Last Admin: 03/28/19 16:30 Dose: 20 mg Cardiovascular: Regular rate Lungs: Clear to auscultation - Procedures Procedures: Procedures Procedure Code Date DRAINAGE OF SPINAL CANAL, PERCUTANEOUS APPROACH, DIAGNOSTIC [id number] 10/14/15 GROUP PSYCHOTHERAPY 92868 10/20/15 GROUP PSYCHOTHERAPY GZHZZZZ 10/20/15 SPINAL FLUID TAP DIAGNOSTIC 44284 10/14/15 Assessment/Plan - Assessment Assessment: HTN Seizure disorder Weakness Psych disorder - Plan Plan: PT OT Continue current meds Psych follow up Fall precaution Asp precaution Nutritional Asmnt/Malnutr-PDOC - Dietary Evaluation Malnutrition Findings (Please click <Entered> for more info): Nutritional Asmnt/Malnutrition Start: 03/24/19 15: 33 Text: Status: Complete Freq: Protocol: Document 03/24/19 15:33 GENESIS (Rec: 03/24/19 15:40 GENESIS [email or web address]) Nutritional Asmnt/Malnutrition Patient General Information Nutritional Screening Low Risk Diagnosis Psychosis Pertinent Medical Hx/Surgical Hx HTN, Seizure disorder, Mental disorder Subjective Information Pt is a 74-year-old female admitted on 03/18 from nursing facility d/t underlying psychiatric illness. Pt is currently eating an estimated 70% meals x3 days per Meal/ Nutrition Activity Record- adequate to meet estimated nutritional needs. Spoke with RNEverardo, stated Pt has Hx of Renal Insufficiency- but, it is not reported in H & P. Stated no Dx of kidney Disease was made.Current renal labs have not been drawn. HT: 51 WT: 115 LB (52.27 kg) BMI: 21.73 (Normal) GI: WNL, Soft, Non-tender BM: 03/21 x1 I/O: 1080/Not Noted Skin: WNL, Intact, Dryness Noman: 19 Diet Order: Cardiac, Renal Estimated Energy Needs: ( Geriatric, CBW) 4469-1768 kcals (25-30 kcals/ kg) 52-63g Pro (1.0-1.2 g/kg) 2246-5180 ml (25-30 ml/kg) Pt is eating 70% of meals Per Meal/Nutrition Activity Record . Dietary is currently providing an estimated 2150 kcals and 80gm Pro, per Pt PO intake this is providing an estimated 1500 kcals and 56gm Pro to meet 100% kcal and 100% Pro needs. Current Diet Order/ Nutrition Support Cardiac, Renal Pertinent Medications Maalox (PRN), Theragran Pertinent Labs No new Labs to Compare 03/18: POC Glucose 106 Nutritional Hx/Data Height 1.55 m Height (Calculated Centimeters) 154.9 Current Weight (lbs) 52.163 kg Weight (Calculated Kilograms) 52.2 Weight (Calculated Grams) 43668.1 [place] Body Weight 105 LB (47.73 kg) % [place] Body Weight 110 Body Mass Index (BMI) 21.7 Weight Status Approriate GI Symptoms GI Symptoms None Last BM 03/21 x1 Skin Integrity/Comment: Skin: WNL, Intact, Dryness Noman: 19 Current %PO Fair (50-74%) Estimated Nutritional Goals BEE in Kcals: Using Current wt Calories/Kcals/Kg 25-30 Kcals Calculated 2766-8021 Protein: Using Current wt Protein g/k.0-1.2 Protein Calculated 52-63 Fluid: ml 4901-4051 ml (25-30 ml/kg) Nutritional Problem No current Nutrition Prob Problem No nutrition diagnosis at this time. Etiology N/A Signs/Symptoms: N/A Malnutrition Related to Morbid Obesity Malnutrition related to morbid obesity No Intervention/Recommendation Comments Continue with Cardiac, Renal diet as ordered. Expected Outcomes/Goals Expected Outcomes/Goals 1. PO intake to continue to meet >75% of nutritional needs . 2. Monitor PO intake, wt, nutrition related labs, and skin integrity. 3. F/U as low risk in 7 days, 03/31
--- NOTE | 2019-03-28 22:43 | Progress Notes ---
DATE: 03/28/2019 Case was discussed with staff of the patient, reviewed records. The patient continues to be confused, easily agitated, unable to make safe plan for her self-care, unpredictable, impulsive, needing redirection. She has been compliant with the medication with no side effects, no sedation, no nausea, no extrapyramidal symptoms. She is on Geodon 20 mg twice a day. We will continue to work with the patient in group therapy, milieu therapy, and adjust the medication as needed. JOB# [id number]
[2019-03-29] MEDS: Multivitamin Tab PO SCH (08:10)
--- NOTE | 2019-03-30 03:40 | Progress Notes ---
DATE: 03/29/2019 SUBJECTIVE: The patient in the hospital, remains confused, agitated, loud, needing a high-level of prompting, redirection, not making too much sense on exam. Per nurse's note, she is confused, following commands, but gets really loud at times, highly disoriented. She seems calmer than when she first came to the hospital. We are recommending shelter, but the field service consultant, Jerald wants her home. PLAN: We will try to stabilize her further. She does seem to be making improvements in regard to her mood symptoms, doing well with current dosing of Geodon and Depakote. I did lower the dose of Depakote. JOB# [id number]
[2019-03-30] MEDS: Multivitamin Tab PO SCH (08:26)
--- NOTE | 2019-03-30 23:41 | Progress Notes ---
DATE: 03/30/2019 SUBJECTIVE: Case was discussed with staff of the patient, reviewed records. The patient continues to be confused. At times, loud, disoriented, demanding. She can walk, but she needs redirection. She is demented. Her can take care of her for the time being. No side effects with the medication, no sedation, and no nausea. She was accepted by nursing facility. We will be working on discharge plan and I did increase her Namenda 2 days ago to 5 mg twice a day, that was on 03/26/2019. She is on Depakote 500 mg twice a day. She is on Geodon 20 mg twice a day. I will be adding Aricept to her medication to help with her cognitive disorder and dementia. We will continue to work with the patient in group therapy, milieu therapy, and adjust the medications as needed. JOB# [id number]
[2019-03-31] MEDS: Multivitamin Tab PO SCH (08:24)
--- NOTE | 2019-03-31 13:06 | Progress Notes ---
DATE: 03/31/2019 Case was discussed with staff of the patient, reviewed records. The patient continues to be demented, at times demanding. She is sleeping better, eating better. She was accepted at the nursing facility but her wants to take her home. She denies any current intent to harm herself or anyone. No sedation, no nausea, no extrapyramidal symptoms. We will continue outpatient group therapy, milieu therapy, adjust medication as needed. [facility]# [id number] MTDD
[2019-04-01] MEDS: Multivitamin Tab PO SCH (09:28)
--- NOTE | 2019-04-01 15:15 | Progress Notes ---
DATE: 04/01/2019 Case was discussed with staff of the patient, reviewed records. The patient continues to be demented, confused, continues to have poor insight. I initiated her on Aricept and she is also on Namenda 5 mg twice a day. I will be increasing the dose to 10 mg a day, her wants to take her home to go to their own facility. No side effects of the medication, no sedation, no nausea, no extrapyramidal symptoms. We will continue outpatient group therapy, milieu therapy, adjust medication as needed. JOB# [id number]
--- NOTE | 2019-04-01 21:04 | General Progress Note ---
Subjective - Review of Systems Service Date: 04/01/19 Subjective: Patient seen and examined confused Objective - Results Recent Labs: Laboratory Last Values POC Glucose 106 MG/DL (70 - 105) H 03/18/19 20:04 Triglycerides 141 mg/dL (<150) 03/19/19 07:05 Cholesterol 187 mg/dL (<200) 03/19/19 07:05 LDL Cholesterol Direct 114 mg/dL (75-193) 03/19/19 07:05 HDL Cholesterol 48 mg/dL (23-92) 03/19/19 07:05 - Physical Exam Vitals and I&O: Vital Signs Temp 98.6 F 04/01/19 15:56 Pulse 56 04/01/19 15:56 Resp 18 04/01/19 15:56 BP 109/61 04/01/19 15:56 Pulse Ox 95 04/01/19 15:56 Intake & Output 04/01/19 04/01/19 04/02/19 06:59 18:59 06:59 Intake Total 120 1400 Balance 120 1400 Intake: Oral 120 1400 Other: # Voids 3 4 # Bowel Movements 1 Active Medications: Current Medications Acetaminophen (Tylenol) 650 mg PO Q4HR PRN PRN Reason: Mild Pain / Temp above 100 Stop: 05/17/19 15:08 Al Hydrox/Mg Hydrox/Simethicone (Maalox) 30 ml PO Q4HR PRN PRN Reason: GI DISTRESS Stop: 05/17/19 15:08 Amlodipine Besylate (Norvasc) 5 mg PO DAILY [facility] Stop: 05/18/19 08:59 Last Admin: 04/01/19 09:28 Dose: Not Given Divalproex Sodium (Depakote Dr) 500 mg PO BID [facility]ON; Protocol Stop: 05/21/19 16:59 Last Admin: 04/01/19 17:18 Dose: 500 mg Donepezil HCl (Aricept) 5 mg PO HS JON Stop: 05/29/19 20:59 Last Admin: 03/31/19 20:30 Dose: 5 mg Lorazepam (Ativan) 0.5 mg PO Q4HR PRN; Protocol PRN Reason: Anxiety Stop: 04/17/19 15:08 Last Admin: 03/23/19 23:42 Dose: 0.5 mg Memantine (Namenda) 10 mg PO BID [facility]ON Stop: 05/31/19 16:59 Last Admin: 04/01/19 17:19 Dose: 10 mg Multivitamins/Vitamin C (Theragran) 1 tab PO DAILY [facility] Stop: 05/18/19 08:59 Last Admin: 04/01/19 09:28 Dose: 1 tab Trazodone HCl (Desyrel) 50 mg PO HS [facility]ON; Protocol Stop: 05/18/19 20:59 Last Admin: 03/31/19 20:30 Dose: 50 mg Ziprasidone (Geodon) 20 mg PO BID JON; Protocol Stop: 05/21/19 16:59 Last Admin: 04/01/19 17:18 Dose: 20 mg Cardiovascular: Regular rate Lungs: Clear to auscultation - Procedures Procedures: Procedures Procedure Code Date DRAINAGE OF SPINAL CANAL, PERCUTANEOUS APPROACH, DIAGNOSTIC [id number] 10/14/15 GROUP PSYCHOTHERAPY 50438 10/20/15 GROUP PSYCHOTHERAPY GZHZZZZ 10/20/15 SPINAL FLUID TAP DIAGNOSTIC 30334 10/14/15 Assessment/Plan - Assessment Assessment: HTN Seizure disorder Weakness Psych disorder - Plan Plan: PT OT Continue current meds Psych follow up Fall precaution Asp precaution Nutritional Asmnt/Malnutr-PDOC - Dietary Evaluation Malnutrition Findings (Please click <Entered> for more info): Nutritional Asmnt/Malnutrition Start: 03/24/19 15: 33 Text: Status: Complete Freq: Protocol: Document 03/24/19 15:33 GENESIS (Rec: 03/24/19 15:40 GENESIS [id number]) Nutritional Asmnt/Malnutrition Patient General Information Nutritional Screening Low Risk Diagnosis Psychosis Pertinent Medical Hx/Surgical Hx HTN, Seizure disorder, Mental disorder Subjective Information Pt is a 74-year-old female admitted on 03/18 from nursing facility d/t underlying psychiatric illness. Pt is currently eating an estimated 70% meals x3 days per Meal/ Nutrition Activity Record- adequate to meet estimated nutritional needs. Spoke with RN, Everardo, stated Pt has Hx of Renal Insufficiency- but, it is not reported in H & P. Stated no Dx of kidney Disease was made.Current renal labs have not been drawn. HT: 51 WT: 115 LB (52.27 kg) BMI: 21.73 (Normal) GI: WNL, Soft, Non-tender BM: 03/21 x1 I/O: 1080/Not Noted Skin: WNL, Intact, Dryness Noman: 19 Diet Order: Cardiac, Renal Estimated Energy Needs: ( Geriatric, CBW) 3717-0955 kcals (25-30 kcals/ kg) 52-63g Pro (1.0-1.2 g/kg) 1402-5495 ml (25-30 ml/kg) Pt is eating 70% of meals Per Meal/Nutrition Activity Record . Dietary is currently providing an estimated 2150 kcals and 80gm Pro, per Pt PO intake this is providing an estimated 1500 kcals and 56gm Pro to meet 100% kcal and 100% Pro needs. Current Diet Order/ Nutrition Support Cardiac, Renal Pertinent Medications Maalox (PRN), Theragran Pertinent Labs No new Labs to Compare 03/18: POC Glucose 106 Nutritional Hx/Data Height 1.55 m Height (Calculated Centimeters) 154.9 Current Weight (lbs) 52.163 kg Weight (Calculated Kilograms) 52.2 Weight (Calculated Grams) 92772.1 [place] Body Weight 105 LB (47.73 kg) % [place] Body Weight 110 Body Mass Index (BMI) 21.7 Weight Status Approriate GI Symptoms GI Symptoms None Last BM 03/21 x1 Skin Integrity/Comment: Skin: WNL, Intact, Dryness Noman: 19 Current %PO Fair (50-74%) Estimated Nutritional Goals BEE in Kcals: Using Current wt Calories/Kcals/Kg 25-30 Kcals Calculated 9976-3256 Protein: Using Current wt Protein g/k.0-1.2 Protein Calculated 52-63 Fluid: ml 8120-8619 ml (25-30 ml/kg) Nutritional Problem No current Nutrition Prob Problem No nutrition diagnosis at this time. Etiology N/A Signs/Symptoms: N/A Malnutrition Related to Morbid Obesity Malnutrition related to morbid obesity No Intervention/Recommendation Comments Continue with Cardiac, Renal diet as ordered. Expected Outcomes/Goals Expected Outcomes/Goals 1. PO intake to continue to meet >75% of nutritional needs . 2. Monitor PO intake, wt, nutrition related labs, and skin integrity. 3. F/U as low risk in 7 days, 03/31
[2019-04-02] MEDS: Multivitamin Tab PO SCH (08:31)
--- NOTE | 2019-04-02 16:11 | Discharge Summary ---
DATE OF DISCHARGE: 04/02/2019 IDENTIFYING INFORMATION: The patient is a 74-year-old female. This was done by Dr. Perez ____ admitted. She was confused with history of bipolar disorder, possible schizoaffective disorder, brought by her because the patient was having trouble ambulating, hospitalized and discharged 2 days prior, but not stable, wandering on the streets without clothes, sleeping in her bathtub. The patient was a poor historian. No idea why and where she was. The patient lives with her . She was a poor historian. The patient was seen by Dr. Perez who felt maybe she could have either bipolar disorder or schizoaffective disorder. The patient was continued with medication, Depakote 500 mg twice a day and I added Aricept to her medication because of her dementia, 5 mg at bedtime. Also, she was on Namenda that I increased to 10 mg twice a day and trazodone 50 mg at bedtime as needed. The patient also was continued with Geodon 20 mg twice a day. The patient progressively got better. She was no longer acting out. We managed to find her a nursing facility, but has been decided they will take her home, take care of her there and she knows that she needs 24-hour care. The patient has improved, she was no longer acting out. She is sleeping well, eating well. We thought she could be discharged to a lesser level of care. FINAL DIAGNOSIS: Schizoaffective disorder, dementia with behavior disturbances. MEDICAL DIAGNOSES: Hypertension, seizure disorder according to Dr. Valdez and the patient will follow up with the psychiatrist and primary care physician. EXPECTED OUTCOME: Stable if the patient complies with the above. JOB# [id number]
--- NOTE | 2019-04-02 22:52 | Progress Notes ---
DATE: 04/02/2019 Case was discussed with staff of the patient, reviewed records. The patient has been compliant with the medication. Continues to be confused. Continues to be unpredictable, impulsive. Her wants to take care of her by himself who I was able to get them a nursing facility to accept her, but they declined. We will make sure that the is ready to take her and have someone to help him with 24-hour care that she needs. I did increase Namenda dose to 10 mg twice a day. We will continue outpatient group therapy, milieu therapy, adjust medication as needed. She has been on Depakote. Depakote level is pending. JOB# [id number]
--- NOTE | 2019-04-03 07:27 | Progress Notes ---
DATE: SUBJECTIVE: The patient was supposed to have left yesterday. We are trying to figure out why she is still here. She is still very confused, disoriented for some reason at discharge and transfer, did not go through, no updated notes. Otherwise calm, generally cooperative, just extremely confused, disoriented, not making any sense on exam. Vitals were noted. Medications were noted. We will continue to monitor. JOB# [id number]
[2019-04-03] MEDS: Multivitamin Tab PO SCH (08:46)
[2019-04-04] MEDS: Multivitamin Tab PO SCH (08:26)
--- NOTE | 2019-04-04 08:54 | Progress Notes ---
DATE: 04/04/2019 The patient is currently pending discharge, unable to care for her basic needs, extremely confused, disoriented, sleeping at this time, arousable, but does not want to engage with me, just goes back to sleep. Difficult to interview, but per staff, she is likely at her baseline, confused, hyperverbal, rambling nonsense, needing a higher level of prompting, redirection, staff care. JOB# [id number]
[2019-04-05] MEDS: Multivitamin Tab PO SCH (08:22)
--- NOTE | 2019-04-05 23:49 | Progress Notes ---
DATE: 04/05/2019 SUBJECTIVE: Chart reviewed and the patient interviewed. Also discussed the patient's condition with the staff and reviewed records and labs. The patient is still in a depressed mood and today, she seems to be feeling sad affect. She also still during my interview. She also still has disorganized thoughts and seems to be suspicious and paranoid. The patient also is still wandering around the unit for no apparent reason. She is also still unkempt and confused and needs redirections. ASSESSMENT: The patient is still confused and considered to be gravely disabled. TREATMENT PLAN: We will continue Depakote 500 mg twice a day as well as Namenda 10 mg twice a day, Geodon 20 mg twice a day, Aricept 5 mg at bedtime and trazodone 50 mg at bedtime. Also, we will get Depakote blood level and continue to follow up. JOB# [id number]
[2019-04-06] MEDS: Multivitamin Tab PO SCH (08:38)
--- NOTE | 2019-04-06 19:04 | Progress Notes ---
DATE: 04/06/2019 SUBJECTIVE: Chart reviewed and the patient interviewed. Also discussed the patient's condition with the staff and reviewed records and labs. The patient is still confused and she is still forgetful and withdrawn. The patient also is still restless and is still interacting minimally with others. She also still has episodes of anger, but because of her confusion and forgetfulness. The patient also seems to be slightly suspicious and paranoid. ASSESSMENT: The patient is still confused and agitated. TREATMENT PLAN: We will continue monitoring her behavior and her condition closely. Also, continue adjusting psychotropic medications. Also, working on discharge plans and placement issue and it seemed that the patient most probably will be discharged to her home. [facility]# [id number]
--- NOTE | 2019-04-07 06:28 | Discharge Summary ---
DATE OF DISCHARGE: 04/07/2019 AGE: 74. SEX: Female. PHYSICIAN: Dr. Young. FINAL DIAGNOSIS: PRIMARY DIAGNOSIS: Schizoaffective disorder, bipolar type, with psychotic features. SECONDARY DIAGNOSIS: Dementia, mild to moderate, with psychotic features. REASON FOR HOSPITALIZATION: The patient was admitted to the hospital accompanied by her because of trouble ambulating and also the patient has not been stable and wandering in the streets without clothes and screaming in her bathtub. HOSPITAL COURSE: The patient continued to be confused and agitated and in irritable mood. The patient also needed lots of redirections and she was pacing and wandering around the unit. The patient was given Depakote in a dose of 500 mg twice a day as well as Aricept and Namenda and Geodon. Gradually, the patient's affect was brighter. The patient was less irritable and less agitated. It is slightly easier to redirect her. The patient was discharged from the hospital. PHYSICAL EXAMINATION: The patient was showing that the patient has hypertension as well as history of seizure disorder. AFTER DISCHARGE PLANS: The patient discharged from the hospital with plans for outpatient treatment and followup. The patient was given appointment to see me in my office. EXPECTED OUTCOME AFTER DISCHARGE: Guarded because the patient's history of possible noncompliance and also with her dementia. LABORATORY DATA: No major abnormal labs while in the hospital. Blood sugar on 03/18/2019 showed 106. JOB# [id number]
[2019-04-07] MEDS: Multivitamin Tab PO SCH (08:29)
== END 2019-04-07 12:35 | disposition home or self-care (01) | DRG 885 ==
LOC: GERO2 10:55 → GERO 03-28 06:31
PROVIDERS: ADMIT Psychiatry & Neurology Psychiatry; ATTEND Psychiatry & Neurology Psychiatry
DX: F25.0 Schizoaffective disorder, bipolar type (principal); F03.91 Unspecified dementia, unspecified severity, with behavioral disturbance; I10 Essential (primary) hypertension; G40.909 Epilepsy, unspecified, not intractable, without status epilepticus
CPT/HCPCS: 36415-UA; 80061-TC; 82948-90; 83036-90; 97530; G0410; X3904